=== PATIENT | female | born 1985 | race Hispanic/Latino ===

== ENCOUNTER 2018-12-31 00:45 | Emergency (ER) | payer OTHER ==
--- NOTE | 2018-12-31 07:39 | ULT ---
PRELIMINARY REPORT/[facility]/EMERGENCY AFTER HOURS PROCEDURE: EXAM: US Abdomen Limited, Right Upper Quadrant EXAM DATE/TIME: 12/31/2018 2:10 AM CLINICAL HISTORY: 33 years old, female; Pain and signs and symptoms; Nausea and vomiting; Abdominal pain; Other: Epigastric to ruq pain TECHNIQUE: Imaging protocol: Real-time ultrasound of the abdomen with image documentation. Examination was focused on the right upper quadrant. COMPARISON: No relevant prior studies available. FINDINGS: Liver: Hepatic steatosis. Gallbladder: Cholelithiasis and gallbladder sludge. No gallbladder wall thickening or pericholecystic fluid. Sonographic Kumar sign negative. Common bile duct: Normal. No stones. No dilation. Pancreas: Visualized pancreas is unremarkable. Right kidney: Chronic medical renal disease. No hydronephrosis. Probable nonobstructing stone in the right kidney. IMPRESSION: Cholelithiasis. No cholecystitis. Thank you for allowing us to participate in the care of your patient. Dictated and Authenticated by: Manuel Sparks MD 12/31/2018 3:35 AM Central Time ([place] & [place]) FINAL REPORT RIGHT UPPER QUADRANT ULTRASOUND: 12/31/2018 COMPARISON: None HISTORY: Right upper quadrant pain with nausea and vomiting TECHNIQUE: Multiplanar grayscale sonographic imaging of the right upper quadrant provided. FINDINGS: Pancreas is obscured by bowel gas. Hepatic parenchyma is heterogeneous and echogenic sugges ting steatosis. Right kidney measures 11.9 cm in craniocaudal dimension and demonstrates no hydronephrosis. Questiona ble subcentimeter nonobstructing stone in midpole right kidney. There is a mobile gallstone within the gallbladder neck. Common bile duct measures 5 mm, within omega l limits. Negative Kumar's sign. IMPRESSION: Cholelithiasis with no sonographic evidence of cholecystitis or biliary dilatation. Code QA Transcribed Date/Time: 12/31/2018 8:13 AM
== END 2018-12-31 04:08 | disposition home or self-care (01) ==
LOC: ERS 00:45
DX: K80.20 Calculus of gallbladder without cholecystitis without obstruction (principal); K21.9 Gastro-esophageal reflux disease without esophagitis
CPT/HCPCS: 76705